=== PATIENT | female | born 1950 | race Hispanic/Latino ===

== ENCOUNTER 2022-10-16 08:42 | Outpatient (CLI) | payer MEDICARE, BC | END 2022-10-16 08:43 | disposition home or self-care (01) | LOC: CSHMRI 08:42 | PROVIDERS: ATTEND Specialist | DX: M25.511 Pain in right shoulder (principal); M75.121 Complete rotator cuff tear or rupture of right shoulder, not specified as traumatic; M67.813 Other specified disorders of tendon, right shoulder; S46.211A Strain of muscle, fascia and tendon of other parts of biceps, right arm, initial encounter ==

== ENCOUNTER 2023-09-07 14:55 | Outpatient (CLI) | payer MEDICARE, BC | END 2023-09-07 14:56 | disposition home or self-care (01) | LOC: CSHMAMMO 14:55 | PROVIDERS: ATTEND Family Medicine | DX: Z12.31 Encounter for screening mammogram for malignant neoplasm of breast (principal); Z80.3 Family history of malignant neoplasm of breast | CPT/HCPCS: 77063; 77067 ==